=== PATIENT | female | born 1965 | race Two or more races ===

== ENCOUNTER → 2017-04-04 | Outpatient (CLI) | payer OTHER ==
--- NOTE | ~2017-04-04 | MY11 ---
[facility] A Service of [facility] RADIOLOGY TEXT RESULTS PATIENT: NINOSKA MONTERROSO LOCATION: [facility] : 65 UNIT #: [id number] AGE: [address]: TRENA CONNOR APRN SEX: F ORDER DR: [id number] [facility] [address] [place], [place] [address] [id number] O MR#: [id number] Acc #: [id number] NAME: NINOSKA MONTERROSO : 1965 SEX: F STUDY DATE/TIME: 04/04/2017 12:13 UNIT: [facility] ROOM: STUDY DESCRIPTION: MY Mammogram Screening Dig Gomez Attending Physician: Rosalio Connor Aprn Ordering Physician: Rosalio Connor Aprn Primary Care Physician: Jean Carlos Vickers M.D. MEDICAL IMAGING REPORT This report is preliminary unless electronic signature is present EXAM Digital screening mammogram with CAD 04/04/2017 INDICATIONS Routine screening. PROCEDURE Bilateral CC and MLO views obtained on a digital mammography unit, FDA-approved CAD device utilized. COMPARISON 03/27/2016 FINDINGS Scattered fibroglandular density. No dominant mass or suspicious calcification. IMPRESSION Negative screening mammogram, screen interval 1 year suggested. BIRADS B 1 - negative Patients over the age of 40 are entered into a reminder system with target due date for the next mammogram. A result letter will also be sent to the patient. BIRADS: 1 - Negative Dictated by... Jesse Elena M.D. THIS IS AN ELECTRONICALLY VERIFIED REPORT Jesse Elena M.D. at 04/08/2017 7:43 AM HEIDID/cal [facility] A Service [facility] RADIOLOGY TEXT RESULTS PATIENT: NINOSKA MONTERROSO LOCATION: [facility] : 65 UNIT #: [id number] AGE: [address]: TRENA CONNOR APRN SEX: F ORDER DR: TD: 04/05/2017 15:58 JOB #: [id number] MEDICAL IMAGING REPORT Page 1 of 1 COPY
== END | disposition home or self-care (01) ==
LOC: CWCC 11:54
DX: Z12.31 Encounter for screening mammogram for malignant neoplasm of breast (principal)
CPT/HCPCS: G0202